=== PATIENT | male | born 1940 | race Caucasian/White ===

== ENCOUNTER 2021-01-13 07:30 | Outpatient (RCR) | payer MEDICARE, OTHER, SELFPAY ==
[2021-01-13 08:07] VITALS: BP 157/76; BMI 26.9
--- NOTE | 2021-01-13 10:03 | PCM.WC.HP ---
(1) Leg swelling Status: Chronic Code(s): M79.89 - Other specified soft tissue disorders (2) Leg edema Status: Chronic Code(s): R60.0 - Localized edema (3) Dependent edema Status: Chronic Code(s): R60.9 - Edema, unspecified (4) Inactivity Status: Chronic Code(s): Z72.3 - Lack of physical exercise (5) History of pulmonary embolism Status: Chronic Code(s): Z86.711 - Personal history of pulmonary embolism (6) History of DVT (deep vein thrombosis) Status: Chronic Code(s): Z86.718 - Personal history of other venous thrombosis and embolism (7) Anticoagulant long-term use Status: Chronic Code(s): Z79.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 transplanted heart: [place] heart Code(s): I25.10 - Atherosclerotic heart disease of [place] coronary artery without angina pectoris (9) Cataract Status: Chronic Code(s): H26.9 - Unspecified cataract (10) Chronic venous insufficiency Status: Chronic Code(s): I87.2 - Venous insufficiency (chronic) (peripheral) (11) Glaucoma Status: Chronic Code(s): H40.9 - Unspecified glaucoma (12) Hypertension Status: Chronic Code(s): I10 - Essential (primary) hypertension (13) Hyperlipidemia Status: Chronic Code(s): E78.5 - Hyperlipidemia, unspecified (14) AAA (abdominal aortic aneurysm) Status: Chronic Code(s): I71.4 - Abdominal aortic aneurysm, without rupture (15) History of AAA (abdominal aortic aneurysm) repair Status: Chronic Code(s): Z98.890 - Other specified postprocedural states (16) Low back pain Status: Chronic Code(s): M54.5 - Low back pain (17) Peripheral neuropathy Status: Chronic Code(s): G62.9 - Polyneuropathy, unspecified (18) Myasthenia gravis Status: Chronic Code(s): G70.00 - Myasthenia gravis without (acute) exacerbation (19) Opioid dependence Status: Chronic Code(s): F11.20 - Opioid dependence, uncomplicated (20) Psoriasis Status: Chronic Code(s): L40.9 - Psoriasis, unspecified (21) Diabetes mellitus Status: Chronic Qualifiers: Diabetes mellitus type: type 2 Code(s): E11.9 - Type 2 diabetes mellitus without complications (22) Valvular heart disease Status: Chronic Code(s): I38 - Endocarditis, valve unspecified (23) 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 This has been chronic in nature, for approximately 1 to 2 years. The patient is inactive. He sleeps in a chair with his legs in a dependent position. He has developed some superficial ulcerations on the right anterior tibial surface in recent weeks, and has been treated with Unna boots, without success. Most recently, Tubigrip's have been used to provide compression to his lower extremities. He is also under the care of a arboriculturist, who plans an invasive procedure on 01/19/2021. The nature of this procedure is uncertain, though thought to be a diagnostic procedure in evaluation of peripheral arterial occlusive disease. The patient presents to us with no accompanying laboratory studies or diagnostic vascular studies. In addition, the patient fell at home approximately 1 week ago, sustaining a superficial abrasion to the left elbow. Patient lives alone, though has home health care, and a neighbor who also assists. Past Medical History Past Medical History: Chronic Problems Leg swelling (Chronic) Leg edema (Chronic) Dependent edema (Chronic) Inactivity (Chronic) History of pulmonary embolism (Chronic) History of DVT (deep vein thrombosis) (Chronic) Anticoagulant long-term use (Chronic) CAD (coronary artery disease) (Chronic) Cataract (Chronic) Chronic venous insufficiency (Chronic) Glaucoma (Chronic) Hypertension (Chronic) Hyperlipidemia (Chronic) AAA (abdominal aortic aneurysm) (Chronic) History of AAA (abdominal aortic aneurysm) repair (Chronic) Low back pain (Chronic) Peripheral neuropathy (Chronic) Myasthenia gravis (Chronic) Opioid dependence (Chronic) Psoriasis (Chronic) Diabetes mellitus (Chronic) Valvular heart disease (Chronic) Failure to thrive (Chronic) Abrasion of elbow, left (Chronic) PAD (peripheral artery disease) (Chronic) Past Medical History: Patient has numerous pre-existing medical conditions, as listed elsewhere. Surgical History: - - The patient has a history of aortic valve replacement in 2016. Also has a history of cataract surgery. Coronary revascularization was performed in 2018. Open reduction and internal fixation of a left hip fracture was performed in 2019. The patient has an aortic endograft. Allergies/Adverse Reactions: Allergies oxytetracycline Allergy (Verified 01/13/21 08:42) Rash Home Medications: Ambulatory Orders Medication Instructions Recorded Aspirin [Lo-Dose Aspirin EC] 81 mg PO DAILY 01/13/21 Atorvastatin Calcium 40 mg PO QHS 01/13/21 Azathioprine [Imuran] 50 mg PO BID 01/13/21 Bimatoprost 5 ml OP DAILY 01/13/21 Calcium Carbonate/Vitamin D3 1 tablet PO DAILY 01/13/21 [Calcium 500+D Tablet Chew] Dorzolamide/Timolol/Pf 1 each OP DAILY 01/13/21 [Dorzolamide-Timolol 2%-0.5%] Furosemide [Lasix] 40 mg PO DAILY 01/13/21 Glipizide 5 mg PO BID 01/13/21 Hydrocodone/Acetaminophen 1 each PO BID 01/13/21 [Hydrocodon-Acetaminophen 5-325] Lisinopril [Zestril] 20 mg PO DAILY 01/13/21 Metoprolol Tartrate 25 mg PO DAILY 01/13/21 Multivitamin with Minerals 1 each PO DAILY 01/13/21 [Multiple Vitamin] Naloxone HCl [Narcan] 4 mg NS PRN PRN 01/13/21 Pramipexole Di-HCl [Pramipexole 0.25 mg PO QHS 01/13/21 Dihydrochloride] Pyridostigmine Lomax 60 mg PO DAILY 01/13/21 Trazodone HCl 150 mg PO QHS 01/13/21 Warfarin Sodium 5 mg PO QWEEK 01/13/21 Warfarin Sodium 10 mg PO DAILY 01/13/21 cycloBENZAPRine HCl [Flexeril] 10 mg PO QHS 01/13/21 - Family History Paternal - - Patient's father at the age of 55 from kidney disease. Patient's mother in her 50's with a history of COPD. Social History: Patient lives alone. He is retired from a management position. Lives: Alone Smoking Status: Former smoker Tobacco Use: Non-smoker Alcohol: None Drugs: None Review of Systems Constitutional: Denies: Chills, Fever, Weight Change Eyes: Denies: Pain, Vision Change HEENT: Denies: Difficulty Hearing, Difficulty Swallowing, Sinus Congestion Cardiovascular: Denies: Chest Pain, Palpitations Respiratory: Denies: Cough, Shortness of Breath Gastrointestinal: Denies: Diarrhea, Nausea, Vomiting Genitourinary: Denies: Dysuria, Hematuria Endocrine: Denies: Heat/ Cold Intolerance, Polydipsia, Polyuria Hematologic/ Lymphatic: Denies: Easy Bruising, Easy Bleeding - Physical Exam Vital Signs BP 157/76 H 01/13/21 08:07 General: Alert, Oriented x3, Cooperative, No apparent distress, Well developed, Well nourished, Lethargic, - - Patient appears weak. However, he is alert and mentally appropriate. HEENT: Atraumatic, PERRLA, EOMI, Normocephalic Oral: Moist Mucosa Neck: No JVD Lungs: Normal air movement Abdomen: Non-Distended Extremities: No clubbing, No cyanosis, No Calf Tenderness, - - Bilateral lower extremity swelling and edema are noted. It is more severe on the right. Inflammatory erythema is noted in the right gaiter area. Circumference measurements are documented elsewhere. Addt'l Wound Findings: Superficial abrasions noted on the left elbow. There is no sign of infection or cellulitis. Dimensions are documented elsewhere. Dry eschar is noted on the right elbow, appearing to represent an appropriately healing superficial wound. Wound Measurements and Assessment WC - Nurse 1 - General Ulcer Measurement Start: 01/13/21 08:07 Freq: Status: Active Protocol: Activity Type Activity Date Activity User E-Sign Co-Sign Detail Recorded Client Recorded Date Recorded By Document 01/13/21 08:07 DEE [email or web address] 01/13/21 08:30 KR 01/13/21 08:07 Wound Center Nurse 1 [Ulcer Assessment] #2 Left Elbow -Current Size (cm) - Length 4 -Current Size (cm) - Width 2 -Current Size (cm) - Depth 0.1 -Total Square Cm 8 -Exudate Amt Medium -Exudate Type Serosanguineous -Wound Margin Distinct, Outline Attached -Granulation Amt Medium (34-66%) -Granulation Quality Red -Necrosis Amt Medium (34-66%) -Necrotic Tissue Type Adherent Slough -Texture (Kay-wound Skin Appearance) Not Assessed, Scarring -Moisture (Kay-wound Skin Appearance No Abnormality, ) Assessed -Color (Kay-wound Skin Appearance) No Abnormality, Assessed -Temperature (Kay-wound Skin No Abnormality Appearance) (Pt Warm) -Tenderness on Palpation (Kay-wound No Skin Appearance) -Ulcer Cleansing soap and water #1 Right Woods Cluster -Current Size (cm) - Length 7 -Current Size (cm) - Width 7 -Current Size (cm) - Depth 0.1 -Total Square Cm 49 -Exudate Amt None Present -Wound Margin Distinct, Outline Attached -Granulation Amt Large (67-100%) -Granulation Quality Red -Necrosis Amt None Present (0 %) -Texture (Kay-wound Skin Appearance) Assessed, Localized Edema -Moisture (Kay-wound Skin Appearance Assessed, ) Maceration -Temperature (Kay-wound Skin No Abnormality Appearance) (Pt Warm) -Tenderness on Palpation (Kay-wound No Skin Appearance) -Ulcer Cleansing Rinsed/ Irrigated with Saline -Foul Odor after Cleansing No -Anesthetic Used 4% Lidocaine Solution [Edema Assessment] -Right Calf (cm) 37 -Right Ankle (cm) 27 -Left Calf (cm) 36.1 -Left Ankle (cm) 26.4 WC - Nurse 2 - General Ulcer CM Notes Start: 01/13/21 08:07 Freq: Status: Active Protocol: Activity Type Activity Date Activity User E-Sign Co-Sign Detail Recorded Client Recorded Date Recorded By Document 01/13/21 09:54 PL [email or web address] 01/13/21 09:55 PL 01/13/21 09:54 Wound Center Nurse 2 [Procedure/Treatment] #2 Left Elbow -Procedure Performed No #1 Right [place] Cluster -Procedure Performed No [See Physician Procedure note for Specifics] Pain Scale: 0-10 Numeric [Pain] -Is Patient Pain Free? Yes WC - Nurse 3 - General Ulcer D/C NN Start: 01/13/21 08:07 Freq: Status: Active Protocol: Activity Type Activity Date Activity User E-Sign Co-Sign Detail Recorded Client Recorded Date Recorded By Document 01/13/21 09:27 KR [id number] 01/13/21 09:28 KR 01/13/21 09:27 Wound Care Nurse 3 [Wound Dressing] #2 Left Elbow -Ulcer Cleansing Rinsed/ Irrigated with Saline -Primary Dressing Applied C Hydrogel ($) -Primary Dressing Covered/Secured Dry Gauze,Dry with Gauze & Roll Gauze,Secured with Tape [Compression Applied] Right -Tubular Bandage Single Layer -Size of Tubigrip Used Size F -Size F ($) 1 Left -Tubular Bandage Single Layer -Size of Tubigrip Used Size F -Size F ($) 1 Pain Scale: 0-10 Numeric [Pain] -Is Patient Pain Free? Yes - Visit Discharge [Visit Discharge Information] -Discharge Condition Stable -Ambulatory Status Walker -Transportation Private Auto -Accompanied by neighbor Neurological: Cranial nerves II-XII grossly intact, Neuro grossly intact Psych/Mental Status: Normal Affect, Appropriate, Alert and oriented to time, place, person, mood and affect Debridement Note Post-Debridement Measurements/Treatment WC - Nurse 2 - General Ulcer CM Notes Start: 01/13/21 08:07 Freq: Status: Active Protocol: Activity Type Activity Date Activity User E-Sign Co-Sign Detail Recorded Client Recorded Date Recorded By Document 01/13/21 09:54 PL [id number] 01/13/21 09:55 PL 01/13/21 09:54 Wound Center Nurse 2 #2 Left Elbow -Procedure Performed No #1 Right [place] Cluster -Procedure Performed No Pain Scale: 0-10 Numeric Is Patient Pain Free? Yes - Nurse 3 - General Ulcer D/C NN Start: 01/13/21 08:07 Freq: Status: Active Protocol: Activity Type Activity Date Activity User E-Sign Co-Sign Detail Recorded Client Recorded Date Recorded By Document 01/13/21 09:27 KR [id number] 01/13/21 09:28 KR 01/13/21 09:27 Wound Care Nurse 3 #2 Left Elbow -Ulcer Cleansing Rinsed/ Irrigated with Saline -Primary Dressing Applied C Hydrogel ($) -Primary Dressing Covered/Secured with Dry Gauze,Dry Gauze & Roll Gauze,Secured with Tape Right -Tubular Bandage Single Layer -Size of Tubigrip Used Size F -Size F ($) 1 Left -Tubular Bandage Single Layer -Size of Tubigrip Used Size F -Size F ($) 1 Pain Scale: 0-10 Numeric Is Patient Pain Free? Yes WC - Visit Discharge Discharge Condition Stable Ambulatory Status Walker Transportation Private Auto Accompanied by neighbor No debridement was completed today Assessment/Plan Active Problems Leg swelling (Chronic) Leg edema (Chronic) Dependent edema (Chronic) Inactivity (Chronic) History of pulmonary embolism (Chronic) History of DVT (deep vein thrombosis) (Chronic) Anticoagulant long-term use (Chronic) CAD (coronary artery disease) (Chronic) Cataract (Chronic) Chronic venous insufficiency (Chronic) Glaucoma (Chronic) Hypertension (Chronic) Hyperlipidemia (Chronic) AAA (abdominal aortic aneurysm) (Chronic) History of AAA (abdominal aortic aneurysm) repair (Chronic) Low back pain (Chronic) Peripheral neuropathy (Chronic) Myasthenia gravis (Chronic) Opioid dependence (Chronic) Psoriasis (Chronic) Diabetes mellitus (Chronic) Valvular heart disease (Chronic) Failure to thrive (Chronic) Abrasion of elbow, left (Chronic) PAD (peripheral artery disease) (Chronic) Assessment: This is a 80-year-old debilitated white male with multiple pre-existing medical problems. It appears as though he has undergone significant physical changes within the last several years, which have rendered him relatively inactive. In addition, he sits idly during much of daytime hours. He sleeps in an upright position. As result, the patient has developed dependent edema in his lower extremities. His lack of activity suggests that the calf and foot muscle pumps have not been recruited to any significant degree in mobilizing the fluid in the venous and lymphatic systems of the lower extremities. Plan: A lengthy and detailed discussion has been undertaken as to the appropriate lifestyle changes to be implemented. The patient has been encouraged to sleep in a recumbent position, with his legs level with his heart, or higher. Leg elevation has also been strongly encouraged through much of the daytime hours. Patient has been discouraged from prolonged, idle sitting. For now, we are to continue compression to the lower extremities by means of Tubigrip's, which were previously implemented. We are to seek recent prior medical records from institutions elsewhere, which will hopefully provide laboratory assessment and vascular studies, venous and arterial. We are to explore the reason for which a procedure has been scheduled for 01/19/2021, to be performed at an outside institution. The patient is return in 2 weeks for reassessment. It is hoped that records will have been obtained by that time to elucidate further information with regard to the patient's recent medical care, and will reveal other information about his medical problems. We are to implement the use of collagen hydrogel topically to the patient's left elbow abrasion. Influenza vaccine was not administered today. Patient is not a smoker. Patient weighs 172 pounds. He stands 5 feet 7 inches tall. His BMI is 26.9. Total time: 70 minutes.
== END 2021-01-23 23:59 ==
LOC: WC 07:30
PROVIDERS: PCP Family Medicine; Referring Provider Family Medicine; Visit Provider Surgery
DX: E11.51 Type 2 diabetes mellitus with diabetic peripheral angiopathy without gangrene (principal); S50.312D Abrasion of left elbow, subsequent encounter; W19.XXXD Unspecified fall, subsequent encounter; M79.89 Other specified soft tissue disorders; R60.0 Localized edema; I25.10 Atherosclerotic heart disease of native coronary artery without angina pectoris; I10 Essential (primary) hypertension; E78.5 Hyperlipidemia, unspecified; E11.42 Type 2 diabetes mellitus with diabetic polyneuropathy; G70.00 Myasthenia gravis without (acute) exacerbation; F11.20 Opioid dependence, uncomplicated; Z86.711 Personal history of pulmonary embolism; Z86.718 Personal history of other venous thrombosis and embolism; L40.9 Psoriasis, unspecified; Z95.2 Presence of prosthetic heart valve; Z79.899 Other long term (current) drug therapy; Z79.82 Long term (current) use of aspirin; Z79.84 Long term (current) use of oral hypoglycemic drugs; Z79.01 Long term (current) use of anticoagulants; Z87.891 Personal history of nicotine dependence
CPT/HCPCS: 99213; G0463

== ENCOUNTER 2021-06-08 16:26 | Outpatient (RCR) | payer MEDICARE, OTHER, SELFPAY ==
[2021-06-08 17:11] LABS: Albumin, Serum 3.3 g/dL (3.2-5.0); BUN 34 mg/dL (7-18); BUN/Creat Ratio 16.7 RATIO (10-20); Calcium,Total 8.6 mg/dL (8.5-10.1); Chloride 107 mmol/L (98-107); Creatinine, Serum 2.03 mg/dL (0.70-1.30); EST Glomerular Filtration Rate 34 mL/min (>60); Est Glom Filt Rate - Afr Amer 41 mL/min (>60); Glucose 174 mg/dL (74-106); Potassium 4.3 mmol/L (3.5-5.1); Sodium Level 138 mmol/L (136-145)
[2021-06-08 17:47] LABS: International Normalized Ratio 3.2; Prothrombin Time (Protime)PT. 31.9 SECONDS (11.7-14.9)
== END 2021-06-25 23:59 ==
LOC: LABSPEC 16:26
PROVIDERS: PCP Family Medicine
DX: G70.00 Myasthenia gravis without (acute) exacerbation (principal); K52.9 Noninfective gastroenteritis and colitis, unspecified; E11.42 Type 2 diabetes mellitus with diabetic polyneuropathy; Z79.01 Long term (current) use of anticoagulants
CPT/HCPCS: 80069; 85610

== ENCOUNTER 2021-09-04 12:41 | Outpatient (RCR) | payer MEDICARE, OTHER, SELFPAY ==
[2021-09-04 15:18] LABS: Hematocrit 36.4 % (40-54); Hemoglobin 11.7 g/dL (13.0-16.5); Mean Corp Hgb Conc 32.1 g/dL (32-36); Mean Corpuscular Hgb 33.4 pg (27.0-32.0); Mean Platelet Vol. 11.5 fl (6.2-12.0); Platelet Count 125 K/mm3 (150-450); RBC Distribution Width CV 15.3 % (11.6-14.6); RBC Distribution Width SD 58.4 fl (35.1-43.9); White Blood Count 5.8 K/mm3 (4.4-11.0)
[2021-09-04 15:33] LABS: Albumin, Serum 3.6 g/dL (3.2-5.0); BUN 31 mg/dL (7-18); BUN/Creat Ratio 18.8 RATIO (10-20); Calcium,Total 8.7 mg/dL (8.5-10.1); Chloride 110 mmol/L (98-107); Creatinine, Serum 1.65 mg/dL (0.70-1.30); EST Glomerular Filtration Rate 43 mL/min (>60); Est Glom Filt Rate - Afr Amer 52 mL/min (>60); Glucose 162 mg/dL (74-106); Phosphorus 2.8 mg/dL (2.5-4.9); Potassium 4.8 mmol/L (3.5-5.1); Sodium Level 141 mmol/L (136-145)
[2021-09-04 16:10] LABS: International Normalized Ratio 3.3; Prothrombin Time (Protime)PT. 33.1 SECONDS (11.7-14.9)
== END 2021-09-04 18:00 | disposition home or self-care (01) ==
LOC: HHLAB 12:41
PROVIDERS: PCP Family Medicine; Visit Provider Family Medicine
DX: G70.00 Myasthenia gravis without (acute) exacerbation (principal); D46.9 Myelodysplastic syndrome, unspecified; K52.9 Noninfective gastroenteritis and colitis, unspecified
CPT/HCPCS: 80069; 85027; 85610